=== PATIENT | male | born 1965 | race Hispanic/Latino ===

== ENCOUNTER 2019-03-16 10:43 | Emergency (ER) | payer SELFPAY ==
[2019-03-16] MEDS ORDERED: IBUPROFEN 600 MG TABLET ONE (10:49)
== END 2019-03-16 11:18 | disposition home or self-care (01) ==
LOC: EDH 10:43
DX: S93.402A Sprain of unspecified ligament of left ankle, initial encounter (principal); S93.602A Unspecified sprain of left foot, initial encounter; X50.1XXA Overexertion from prolonged static or awkward postures, initial encounter; Y93.89 Activity, other specified; Y92.89 Other specified places as the place of occurrence of the external cause; Y99.8 Other external cause status
CPT/HCPCS: 73610; 73630